=== PATIENT | male | born 1960 | race African-American/Black ===

== ENCOUNTER 2023-04-05 15:05 | Emergency (ER) | payer OTHER ==
[~2023-04-05] VITALS: Ht 172.7 cm; Wt 91.0 kg
[2023-04-05] MEDS ORDERED: SENN-187 PO (15:08)
[2023-04-05] MEDS ORDERED: AMLO-258 PO (15:08)
[2023-04-05] MEDS ORDERED: CARV12 PO (15:08)
[2023-04-05] MEDS ORDERED: LORA10TA7 PO (15:08)
[2023-04-05] MEDS ORDERED: ASPI-1450 PO (15:08)
[2023-04-05] MEDS ORDERED: LISI-894 PO (15:08)
[2023-04-05] MEDS ORDERED: TAMS-13 PO (15:08)
[2023-04-05] MEDS ORDERED: ATOR40TA28 PO (15:08)
[2023-04-05] MEDS ORDERED: TraMADol HCL 50 MG TABLET PO ONE (16:15)
[2023-04-05] MEDS ORDERED: TRAM-559 PO (17:25)
[2023-04-05 18:03] VITALS: BP 138/80
== END 2023-04-05 18:23 | disposition home or self-care (01) ==
LOC: EMS 15:05
DX: S80.01XA Contusion of right knee, initial encounter (principal); E78.00 Pure hypercholesterolemia, unspecified; I10 Essential (primary) hypertension; W18.09XA Striking against other object with subsequent fall, initial encounter; Y93.89 Activity, other specified; Y92.89 Other specified places as the place of occurrence of the external cause; Y99.8 Other external cause status
CPT/HCPCS: 29505; 99283

== ENCOUNTER 2023-10-29 13:33 | Emergency (ER) | payer MEDICARE, OTHER ==
[~2023-10-29] VITALS: Ht 172.7 cm; Wt 86.4 kg
[~2023-10-29 13:33] MED LIST: AMLO-258 PO; ASPI-1450 PO; ATOR40TA28 PO; CARV12 PO; LISI-894 PO; LORA10TA7 PO; SENN-376 PO; TAMS0.4C94 PO; TRAM-559 PO
[2023-10-29 19:16] VITALS: TEMP 98.1
[2023-10-29 21:25] VITALS: BP 126/78; PULSE 95; RESP 18
[2023-10-29] MEDS ORDERED: AMOX250C4 PO (21:48)
== END 2023-10-29 22:01 | disposition home or self-care (01) ==
LOC: EMS 15:13
DX: H66.91 Otitis media, unspecified, right ear (principal); H72.91 Unspecified perforation of tympanic membrane, right ear; E78.00 Pure hypercholesterolemia, unspecified; I10 Essential (primary) hypertension
CPT/HCPCS: 99283

== ENCOUNTER 2024-03-20 04:01 | Inpatient (IN) | payer MEDICARE, MEDICAID ==
[~2024-03-20] VITALS: Ht 175.3 cm; Wt 80.0 kg
[~2024-03-20 04:01] MED LIST changes: +AMOX250C4 PO; -TRAM-559 PO; +TRAM50TA5 PO
[2024-03-20] MEDS: GuaiFENesin/D-METHORPHAN [SUGAR-FREE] 200-20MG/10 ML SYRUP UDCUP PO ONE (06:21)
[2024-03-20] MEDS: ACETAMINOPHEN 500 MG TABLET PO ONE ×2 (06:21→13:03)
[2024-03-20 06:35] LABS: BASOPHILS % (AUTO) 0.2 % (0.0-2.0); EOSINOPHILS % (AUTO) 1.3 % (1.0-6.0); HEMATOCRIT 29.9 % (41-53); HEMOGLOBIN 9.8 g/dL (13.5-17.5); LYMPHOCYTES # (AUTO) 0.6 K/uL (1.0-4.8); LYMPHOCYTES % (AUTO) 5.8 % (22.0-44.0); MEAN CORPUSCULAR HGB CONC 32.8 G/dL (31.0-37.0); MEAN CORPUSCULAR VOLUME 79 fL (80-100); MONOCYTES # (AUTO) 1.1 K/uL (0.1-1.0); MONOCYTES % (AUTO) 9.8 % (2.0-9.0); NEUTROPHILS # (AUTO) 9.1 K/uL (1.8-7.7); NEUTROPHILS % (AUTO) 82.9 % (40.0-70.0); PLATELET COUNT (AUTO) 292 K/uL (150-450); RED BLOOD CELL COUNT(AUTO) 3.77 MIL/uL (4.50-5.90)
[2024-03-20 06:38] LABS: COVID AG,FIA SOURCE NASAL SWAB
[2024-03-20 06:45] LABS: ANION GAP 9 mmol/L (8-16); CALCIUM, TOTAL 9.1 mg/dL (8.8-10.5); CARBON DIOXIDE 30 mmol/L (22-29); CHLORIDE 100 mmol/L (98-107); CREATININE 1.28 mg/dL (0.60-1.30); GLOMERULAR FILTR. RATE CALC > 60 mL/min (>60); GLUCOSE,RANDOM 131 mg/dL (70-110); POTASSIUM 3.3 mmol/L (3.5-5.1); SODIUM SERUM 139 mmol/L (136-145); UREA NITROGEN, BLOOD 26 mg/dL (7-18)
[2024-03-20 06:50] LABS: ALANINE AMINOTRANSFERASE 14 U/L (12-78); ALBUMIN 2.6 g/dL (3.4-5.0); ALKALINE PHOSPHATASE 74 U/L (46-116); ASPARTATE AMINOTRANSFERASE 14 U/L (15-37); BILIRUBIN,TOTAL 0.5 mg/dL (0.1-1.0); TOTAL PROTEIN, SERUM 8.2 g/dL (6.4-8.2)
[2024-03-20 06:53] LABS: TROPONIN I-HIGH SENSITIVITY 6 ng/L (<76)
[2024-03-20] MEDS ORDERED: ATOR-2 PO (07:20)
[2024-03-20] MEDS ORDERED: SENN-376 PO (07:22)
[2024-03-20] MEDS ORDERED: LISI40TA9 PO (07:22)
[2024-03-20 07:29] LABS: B-TYPE NATRIURETIC PEPTIDE 14 pg/mL (0-100)
[2024-03-20] MEDS ORDERED: IOHEXOL 350 MG/ML 100 ML VIAL ONE (07:34)
[2024-03-20] MEDS ORDERED: SODIUM CHLORIDE 0.9% 100 ML ONE (07:34)
[2024-03-20 08:21] LABS: SARS-COV2 (COVID) ANTIGEN,FIA Negative (Negative)
[2024-03-20 08:26] LABS: INFLUENZA TYPE A NEGATIVE FOR TYPE A (NEGATIVE); INFLUENZA TYPE B NEGATIVE FOR TYPE B (NEGATIVE)
[2024-03-20] MEDS: SODIUM CHLORIDE 0.9% 1,000 ML IV ONE ×2 (09:25→14:20)
[2024-03-20] MEDS ORDERED: GADOTERATE MEGLUMINE 10 MMOL/20 ML VIAL IVP ONE (10:31)
[2024-03-20] MEDS: POTASSIUM CHLORIDE 20 MEQ ER TABLET PO ONE (10:42)
[2024-03-20] MEDS ORDERED: GLYCOPYRROLATE 0.2 MG/ML VIAL IM ONE (12:00)
[2024-03-20] MEDS ORDERED: LIDOCAINE/PF 2% 5 ML SYRINGE IVP ONE (12:00)
[2024-03-20] MEDS ORDERED: PROPOFOL 1% 20 ML VIAL IVP ONE (12:00)
[2024-03-20] MEDS: ASPIRIN 325 MG TABLET PO ONE (14:19)
[2024-03-20 17:53] VITALS: BP 145/72; PULSE 89; RESP 18; TEMP 97.9
[2024-03-20] MEDS ORDERED: HydrALAZINE HCL 20 MG/ML VIAL IVP PRN (18:30)
[2024-03-20] MEDS ORDERED: ZOLPIDEM TARTRATE 5 MG TABLET PO PRN (18:30)
[2024-03-20] MEDS ORDERED: ONDANSETRON HCL 4 MG/2 ML VIAL IVP PRN (18:30)
[2024-03-20] MEDS ORDERED: ACETAMINOPHEN 325 MG TABLET PO PRN (18:30)
[2024-03-20] MEDS ORDERED: SENNOSIDES 8.6 MG TABLET PO PRN (18:30)
[2024-03-20] MEDS ORDERED: LORATADINE 10 MG TABLET PO PRN (18:30)
[2024-03-20] MEDS: MORPHINE SULFATE 2 MG/ML SYRINGE IVP PRN (18:33)
[2024-03-20] MEDS: DOCUSATE SODIUM 100 MG CAPSULE PO SCH (21:00)
[2024-03-20 21:05] VITALS: BP 117/71; PULSE 89; RESP 19; TEMP 97.8
[2024-03-21] VITALS (8 sets, daily range): BP systolic 107–165; BP diastolic 72–100; PULSE 89–105; RESP 18–19; TEMP 97.3–98.5
[2024-03-21] MEDS: HEPARIN SODIUM,PORCINE 5,000 UNITS/ML VIAL SQ SCH
[2024-03-21 08:06] LABS: ANION GAP 9 mmol/L (8-16); CARBON DIOXIDE 26 mmol/L (22-29); CHLORIDE 102 mmol/L (98-107); CREATININE 0.96 mg/dL (0.60-1.30); GLOMERULAR FILTR. RATE CALC > 60 mL/min (>60); GLUCOSE,RANDOM 121 mg/dL (70-110); SODIUM SERUM 137 mmol/L (136-145); UREA NITROGEN, BLOOD 18 mg/dL (7-18)
[2024-03-21] MEDS: PANTOPRAZOLE SODIUM 40 MG/VIAL IVP SCH (08:08)
[2024-03-21] MEDS: ASPIRIN 81 MG CHEWABLE TABLET PO SCH (08:25)
[2024-03-21] MEDS: TAMSULOSIN HCL 0.4 MG CAPSULE PO SCH (08:26)
[2024-03-21] MEDS: ATORVASTATIN CALCIUM 40 MG TABLET PO SCH (08:26)
[2024-03-21] MEDS: DEXTROSE 5%-0.45% SODIUM CHL 1,000 ML IV SCH (15:45)
[2024-03-21] MEDS: ASPIRIN 300 MG RECTAL SUPPOSITORY PR SCH (15:45)
[2024-03-22] VITALS (7 sets, daily range): BP systolic 103–158; BP diastolic 69–91; PULSE 79–121; RESP 17–19; TEMP 97.5–98.3
[2024-03-22 07:06] LABS: BASOPHILS % (AUTO) 0.1 % (0.0-2.0); EOSINOPHILS % (AUTO) 0.2 % (1.0-6.0); HEMATOCRIT 31.9 % (41-53); HEMOGLOBIN 10.5 g/dL (13.5-17.5); LYMPHOCYTES # (AUTO) 0.6 K/uL (1.0-4.8); LYMPHOCYTES % (AUTO) 4.4 % (22.0-44.0); MEAN CORPUSCULAR HEMOGLOBIN 25.5 pg (26.0-34.0); MEAN CORPUSCULAR HGB CONC 32.8 G/dL (31.0-37.0); MEAN CORPUSCULAR VOLUME 78 fL (80-100); MONOCYTES % (AUTO) 7.4 % (2.0-9.0); NEUTROPHILS # (AUTO) 11.4 K/uL (1.8-7.7); PLATELET COUNT (AUTO) 330 K/uL (150-450); RED CELL DISTRIBUTION WIDTH 15.2 % (11.5-14.5); WHITE BLOOD COUNT (AUTO) 12.9 K/uL (4.5-11.0)
[2024-03-22 07:09] LABS: NEUTROPHILS % (AUTO) 87.9 % (40.0-70.0)
[2024-03-22 07:18] LABS: ALANINE AMINOTRANSFERASE 17 U/L (12-78); ALBUMIN 2.1 g/dL (3.4-5.0); ALKALINE PHOSPHATASE 78 U/L (46-116); ASPARTATE AMINOTRANSFERASE 13 U/L (15-37); BILIRUBIN,TOTAL 0.5 mg/dL (0.1-1.0); CALCIUM, TOTAL 8.9 mg/dL (8.8-10.5); CARBON DIOXIDE 28 mmol/L (22-29); CREATININE 0.96 mg/dL (0.60-1.30); GLOMERULAR FILTR. RATE CALC > 60 mL/min (>60); GLUCOSE,RANDOM 168 mg/dL (70-110); TOTAL PROTEIN, SERUM 8.6 g/dL (6.4-8.2); UREA NITROGEN, BLOOD 12 mg/dL (7-18)
[2024-03-22 07:52] LABS: ANION GAP 10 mmol/L (8-16); CHLORIDE 98 mmol/L (98-107); POTASSIUM 3.5 mmol/L (3.5-5.1); SODIUM SERUM 136 mmol/L (136-145)
[2024-03-22] MEDS: CLOPIDOGREL BISULFATE 75 MG TABLET PO SCH (17:00)
[2024-03-22] MEDS ORDERED: IOHEXOL 350 MG/ML 100 ML VIAL ONE (18:07)
[2024-03-22] MEDS ORDERED: SODIUM CHLORIDE 0.9% 100 ML ONE (18:07)
[2024-03-23] VITALS (12 sets, daily range): BP systolic 111–148; BP diastolic 68–88; PULSE 82–113; RESP 17–22; TEMP 98–98.6; O2SAT 94–99
[2024-03-23 08:09] LABS: BASOPHILS % (AUTO) 0.1 % (0.0-2.0); EOSINOPHILS % (AUTO) 0.1 % (1.0-6.0); HEMATOCRIT 32.6 % (41-53); HEMOGLOBIN 10.5 g/dL (13.5-17.5); LYMPHOCYTES # (AUTO) 0.8 K/uL (1.0-4.8); MEAN CORPUSCULAR HEMOGLOBIN 25.4 pg (26.0-34.0); MEAN CORPUSCULAR HGB CONC 32.3 G/dL (31.0-37.0); MEAN CORPUSCULAR VOLUME 79 fL (80-100); MONOCYTES # (AUTO) 1.3 K/uL (0.1-1.0); MONOCYTES % (AUTO) 8.8 % (2.0-9.0); NEUTROPHILS # (AUTO) 12.9 K/uL (1.8-7.7); PLATELET COUNT (AUTO) 303 K/uL (150-450); RED BLOOD CELL COUNT(AUTO) 4.13 MIL/uL (4.50-5.90); RED CELL DISTRIBUTION WIDTH 15.5 % (11.5-14.5)
[2024-03-23 08:18] LABS: ALANINE AMINOTRANSFERASE 22 U/L (12-78); ALBUMIN 2.2 g/dL (3.4-5.0); ALKALINE PHOSPHATASE 90 U/L (46-116); ANION GAP 9 mmol/L (8-16); ASPARTATE AMINOTRANSFERASE 23 U/L (15-37); BILIRUBIN,TOTAL 0.5 mg/dL (0.1-1.0); CALCIUM, TOTAL 8.9 mg/dL (8.8-10.5); CARBON DIOXIDE 29 mmol/L (22-29); CHLORIDE 97 mmol/L (98-107); CREATININE 1.05 mg/dL (0.60-1.30); GLOMERULAR FILTR. RATE CALC > 60 mL/min (>60); GLUCOSE,RANDOM 150 mg/dL (70-110); POTASSIUM 3.5 mmol/L (3.5-5.1); SODIUM SERUM 135 mmol/L (136-145); TOTAL PROTEIN, SERUM 8.2 g/dL (6.4-8.2); UREA NITROGEN, BLOOD 12 mg/dL (7-18)
[2024-03-23] MEDS: BISACODYL 10 MG RECTAL RECTAL SUPPOSITORY PR PRN (10:00)
[2024-03-23] MEDS: ALBUTEROL SULFATE 2.5 MG/0.5 ML NEB SOLUTION NEB PRN (10:28)
[2024-03-23] MEDS: IPRATROPIUM BROMIDE 0.5 MG/2.5 ML NEB SOLUTION NEB PRN (10:28)
[2024-03-23] MEDS: PIPERACILLIN/TAZO 3.375 GM/D5W 50 ML IV SCH (13:15)
[2024-03-24 00:06] VITALS: BP 125/78; PULSE 85; RESP 19; TEMP 98.9
[2024-03-24 04:00] VITALS: BP 104/58; PULSE 65; RESP 18
[2024-03-24 07:05] LABS: BASOPHILS % (AUTO) 0.1 % (0.0-2.0); EOSINOPHILS % (AUTO) 0.1 % (1.0-6.0); HEMOGLOBIN 9.9 g/dL (13.5-17.5); LYMPHOCYTES # (AUTO) 0.5 K/uL (1.0-4.8); LYMPHOCYTES % (AUTO) 2.9 % (22.0-44.0); MEAN CORPUSCULAR HEMOGLOBIN 25.4 pg (26.0-34.0); MEAN CORPUSCULAR HGB CONC 32.8 G/dL (31.0-37.0); MEAN CORPUSCULAR VOLUME 77 fL (80-100); MONOCYTES # (AUTO) 1.2 K/uL (0.1-1.0); MONOCYTES % (AUTO) 7.5 % (2.0-9.0); NEUTROPHILS # (AUTO) 14.2 K/uL (1.8-7.7); PLATELET COUNT (AUTO) 315 K/uL (150-450); RED BLOOD CELL COUNT(AUTO) 3.89 MIL/uL (4.50-5.90); RED CELL DISTRIBUTION WIDTH 15.4 % (11.5-14.5); WHITE BLOOD COUNT (AUTO) 15.9 K/uL (4.5-11.0)
[2024-03-24 07:07] LABS: NEUTROPHILS % (AUTO) 89.4 % (40.0-70.0)
[2024-03-24 07:15] VITALS: BP 134/76; PULSE 72; RESP 18; TEMP 98
[2024-03-24 07:23] LABS: ALANINE AMINOTRANSFERASE 27 U/L (12-78); ALBUMIN 1.9 g/dL (3.4-5.0); ALKALINE PHOSPHATASE 85 U/L (46-116); ANION GAP 7 mmol/L (8-16); ASPARTATE AMINOTRANSFERASE 21 U/L (15-37); BILIRUBIN,TOTAL 0.8 mg/dL (0.1-1.0); CALCIUM, TOTAL 8.7 mg/dL (8.8-10.5); CARBON DIOXIDE 30 mmol/L (22-29); CHLORIDE 96 mmol/L (98-107); CREATININE 1.09 mg/dL (0.60-1.30); GLOMERULAR FILTR. RATE CALC > 60 mL/min (>60); GLUCOSE,RANDOM 183 mg/dL (70-110); SODIUM SERUM 133 mmol/L (136-145); TOTAL PROTEIN, SERUM 8.1 g/dL (6.4-8.2); UREA NITROGEN, BLOOD 10 mg/dL (7-18)
[2024-03-24 07:44] LABS: POTASSIUM 2.9 mmol/L (3.5-5.1)
[2024-03-24] MEDS: HYDROCODONE/ACETAMINOPHEN 5-325 MG TABLET PO PRN (08:21)
[2024-03-24 11:44] VITALS: BP 127/74; PULSE 78; RESP 18; TEMP 98.1
[2024-03-24 15:08] VITALS: BP 131/72; PULSE 84; RESP 18; TEMP 98
[2024-03-24] MEDS: VANCOMYCIN 1.5 GM/WATER(PEG) 300 ML IV ONE (18:32)
[2024-03-24 19:46] VITALS: BP 135/77; PULSE 83; RESP 19; TEMP 98.7
[2024-03-24] MEDS: POTASSIUM CHL 10 MEQ/WATER 50 ML IV PRN (19:53)
[2024-03-25 00:08] VITALS: BP 128/85; PULSE 93; RESP 19; TEMP 98.7
[2024-03-25 04:56] VITALS: BP 129/89; PULSE 89; RESP 19; TEMP 98
[2024-03-25] MEDS ORDERED: SODIUM CL IRRIG SOLN BOTTLE 250 ML IRRIG ONE (05:08)
[2024-03-25 07:21] LABS: HEMATOCRIT 28.4 % (41-53); HEMOGLOBIN 9.2 g/dL (13.5-17.5); MEAN CORPUSCULAR HEMOGLOBIN 25.2 pg (26.0-34.0); MEAN CORPUSCULAR HGB CONC 32.3 G/dL (31.0-37.0); MEAN CORPUSCULAR VOLUME 78 fL (80-100); PLATELET COUNT (AUTO) 267 K/uL (150-450); RED BLOOD CELL COUNT(AUTO) 3.64 MIL/uL (4.50-5.90); RED CELL DISTRIBUTION WIDTH 14.9 % (11.5-14.5)
[2024-03-25 07:24] LABS: ALANINE AMINOTRANSFERASE 38 U/L (12-78); ALBUMIN 1.6 g/dL (3.4-5.0); ALKALINE PHOSPHATASE 108 U/L (46-116); ANION GAP 10 mmol/L (8-16); ASPARTATE AMINOTRANSFERASE 32 U/L (15-37); CALCIUM, TOTAL 8.6 mg/dL (8.8-10.5); CARBON DIOXIDE 28 mmol/L (22-29); CHLORIDE 96 mmol/L (98-107); CREATININE 1.13 mg/dL (0.60-1.30); GLOMERULAR FILTR. RATE CALC > 60 mL/min (>60); GLUCOSE,RANDOM 178 mg/dL (70-110); POTASSIUM 3.1 mmol/L (3.5-5.1); SODIUM SERUM 134 mmol/L (136-145); TOTAL PROTEIN, SERUM 7.8 g/dL (6.4-8.2); UREA NITROGEN, BLOOD 13 mg/dL (7-18)
[2024-03-25 08:14] VITALS: BP 131/79; PULSE 87; RESP 16; TEMP 98.2
[2024-03-25] MEDS: VANCOMYCIN 1GM/WATER(PEG/NADA) 200 ML IV SCH (08:33)
[2024-03-25] MEDS: POTASSIUM CHLORIDE 20 MEQ ER TABLET PO PRN (08:34)
[2024-03-25 10:05] LABS: BAND NEUTROPHILS % (MANUAL) 0 % (0-5); LYMPHOCYTES % (MANUAL) 5 % (22-44); MONOCYTES % (MANUAL) 5 % (2-9); SEGMENTED NEUTROPHILS % 90 % (40-70); TOTAL CELLS COUNTED 100
[2024-03-25] MEDS: *CLINICAL-PERIPHERAL PARENTERAL NUTRITION DOSING CLINICAL ONE (10:14)
[2024-03-25 11:45] VITALS: BP 151/90; PULSE 87; RESP 18; TEMP 98.9
[2024-03-25 12:02] LABS: PHOSPHORUS 2.4 mg/dL (2.5-4.9)
[2024-03-25 14:59] VITALS: BP 143/93; PULSE 103; RESP 18; TEMP 98.5
[2024-03-25 18:30] LABS: APPEARANCE,URINE HAZY (CLEAR); BILIRUBIN,URINE NEGATIVE (NEGATIVE); COLOR,URINE YELLOW (YELLOW); GLUCOSE, URINE (UA) NEGATIVE (NEGATIVE); KETONES,URINE NEGATIVE (NEGATIVE); LEUKOCYTE ESTERASE ,URINE NEGATIVE (NEGATIVE); NITRATE,URINE NEGATIVE (NEGATIVE); OCCULT BLOOD,URINE MODERATE (NEGATIVE); PH,URINE 5.5 (5.0-8.0); PROTEIN,URINE 30-70 mg/dL (NEGATIVE); SPECIFIC GRAVITIY, URINE 1.025 (1.003-1.030); UROBILINOGEN,URINE <=1.0 mg/dL (<=1.0)
[2024-03-25 19:06] LABS: AMORPHOUS SEDIMENT,UR Moderate /LPF (None Seen); BACTERIA,URINE None Seen /HPF (None Seen); SQUAMOUS EPITHELIAL CELL,UR Few /LPF (None Seen); URIC ACID CRYSTALS,URINE Few /LPF (None Seen); WBC,URINE None Seen /HPF (0-5)
[2024-03-25 20:22] VITALS: BP 137/87; PULSE 99; RESP 18; TEMP 98.6
[2024-03-26] MEDS: POTASSIUM CHLORIDE IV SCH ×2 (02:35→22:45)
[2024-03-26] MEDS: [UNRECOGNIZED DRUG - OTHER] IV SCH (02:35)
[2024-03-26] MEDS: PPN IV SCH ×2 (02:35→22:45)
[2024-03-26] MEDS: SODIUM CHLORIDE IV SCH ×2 (02:35→22:45)
[2024-03-26 04:03] VITALS: BP 136/60; PULSE 95; RESP 18; TEMP 98
[2024-03-26 08:04] LABS: BASOPHILS % (AUTO) 0.1 % (0.0-2.0); EOSINOPHILS % (AUTO) 0.4 % (1.0-6.0); HEMATOCRIT 29.3 % (41-53); HEMOGLOBIN 9.5 g/dL (13.5-17.5); LYMPHOCYTES # (AUTO) 0.6 K/uL (1.0-4.8); LYMPHOCYTES % (AUTO) 4.9 % (22.0-44.0); MEAN CORPUSCULAR HEMOGLOBIN 25.2 pg (26.0-34.0); MEAN CORPUSCULAR HGB CONC 32.5 G/dL (31.0-37.0); MEAN CORPUSCULAR VOLUME 78 fL (80-100); MONOCYTES % (AUTO) 8.4 % (2.0-9.0); NEUTROPHILS # (AUTO) 10.7 K/uL (1.8-7.7); PLATELET COUNT (AUTO) 270 K/uL (150-450); RED BLOOD CELL COUNT(AUTO) 3.78 MIL/uL (4.50-5.90); RED CELL DISTRIBUTION WIDTH 15.4 % (11.5-14.5); WHITE BLOOD COUNT (AUTO) 12.4 K/uL (4.5-11.0)
[2024-03-26 08:21] LABS: NEUTROPHILS % (AUTO) 86.2 % (40.0-70.0)
[2024-03-26] MEDS ORDERED: SODIUM CHLORIDE 0.9% 1,000 ML ONE (08:21)
[2024-03-26 08:51] LABS: INR 1.3 (0.9-1.1); PROTHROMBIN TIME 13.8 SEC (9.4-11.6)
[2024-03-26 08:57] LABS: PHOSPHORUS 2.8 mg/dL (2.5-4.9); VANCOMYCIN,RANDOM 26.4 mcg/mL (25.0-50.0)
[2024-03-26 09:17] VITALS: BP 136/80; PULSE 86; RESP 18; TEMP 98.2
[2024-03-26 09:58] LABS: ALANINE AMINOTRANSFERASE 42 U/L (12-78); ALBUMIN 1.8 g/dL (3.4-5.0); ALKALINE PHOSPHATASE 133 U/L (46-116); ANION GAP 11 mmol/L (8-16); ASPARTATE AMINOTRANSFERASE 37 U/L (15-37); CALCIUM, TOTAL 8.8 mg/dL (8.8-10.5); CARBON DIOXIDE 29 mmol/L (22-29); CHLORIDE 96 mmol/L (98-107); CREATININE 1.07 mg/dL (0.60-1.30); GLOMERULAR FILTR. RATE CALC > 60 mL/min (>60); GLUCOSE,RANDOM 161 mg/dL (70-110); POTASSIUM 3.1 mmol/L (3.5-5.1); SODIUM SERUM 136 mmol/L (136-145); UREA NITROGEN, BLOOD 16 mg/dL (7-18)
[2024-03-26] MEDS ORDERED: DEXTROSE 5%-0.45% SODIUM CHL 1,000 ML IV SCH ×2 (10:30→22:00)
[2024-03-26] MEDS: SODIUM CHLORIDE 0.9% 1,000 ML IV ONE (14:00)
[2024-03-26] MEDS: DEXTROSE 5%-0.45% SODIUM CHL 1,000 ML IV SCH (17:14)
[2024-03-26 21:16] VITALS: BP 130/83; PULSE 81; RESP 18; TEMP 97.7
[2024-03-26] MEDS ORDERED: [UNRECOGNIZED DRUG - OTHER] IV SCH (22:00)
[2024-03-26] MEDS ORDERED: SODIUM CHLORIDE IV SCH (22:00)
[2024-03-26] MEDS ORDERED: POTASSIUM CHLORIDE IV SCH (22:00)
[2024-03-26] MEDS ORDERED: PPN IV SCH (22:00)
[2024-03-26] MEDS: [UNRECOGNIZED DRUG - OTHER] IV SCH (22:45)
[2024-03-27 04:14] VITALS: BP 131/78; PULSE 84; RESP 18; TEMP 98.2
[2024-03-27 07:23] LABS: BASOPHILS % (AUTO) 0.2 % (0.0-2.0); EOSINOPHILS % (AUTO) 0.6 % (1.0-6.0); HEMATOCRIT 26.7 % (41-53); HEMOGLOBIN 8.9 g/dL (13.5-17.5); LYMPHOCYTES # (AUTO) 0.6 K/uL (1.0-4.8); LYMPHOCYTES % (AUTO) 5.5 % (22.0-44.0); MEAN CORPUSCULAR HEMOGLOBIN 25.6 pg (26.0-34.0); MEAN CORPUSCULAR HGB CONC 33.2 G/dL (31.0-37.0); MEAN CORPUSCULAR VOLUME 77 fL (80-100); MONOCYTES % (AUTO) 9.3 % (2.0-9.0); NEUTROPHILS # (AUTO) 9.2 K/uL (1.8-7.7); NEUTROPHILS % (AUTO) 84.4 % (40.0-70.0); PLATELET COUNT (AUTO) 270 K/uL (150-450); RED BLOOD CELL COUNT(AUTO) 3.46 MIL/uL (4.50-5.90); RED CELL DISTRIBUTION WIDTH 15.3 % (11.5-14.5); WHITE BLOOD COUNT (AUTO) 10.9 K/uL (4.5-11.0)
[2024-03-27 07:27] LABS: ALANINE AMINOTRANSFERASE 36 U/L (12-78); ALBUMIN 1.6 g/dL (3.4-5.0); ALKALINE PHOSPHATASE 123 U/L (46-116); ANION GAP 11 mmol/L (8-16); ASPARTATE AMINOTRANSFERASE 23 U/L (15-37); BILIRUBIN,TOTAL 0.9 mg/dL (0.1-1.0); CALCIUM, TOTAL 8.3 mg/dL (8.8-10.5); CARBON DIOXIDE 29 mmol/L (22-29); CHLORIDE 98 mmol/L (98-107); CREATININE 1.08 mg/dL (0.60-1.30); GLOMERULAR FILTR. RATE CALC > 60 mL/min (>60); GLUCOSE,RANDOM 159 mg/dL (70-110); PHOSPHORUS 2.8 mg/dL (2.5-4.9); SODIUM SERUM 138 mmol/L (136-145); TOTAL PROTEIN, SERUM 7.8 g/dL (6.4-8.2); UREA NITROGEN, BLOOD 16 mg/dL (7-18)
[2024-03-27 07:53] LABS: POTASSIUM 2.8 mmol/L (3.5-5.1)
[2024-03-27 07:58] LABS: VANCOMYCIN,RANDOM 24.8 mcg/mL (25.0-50.0)
[2024-03-27] MEDS: POTASSIUM CHL 10 MEQ/WATER 50 ML IV PRN (08:08)
[2024-03-27 08:25] VITALS: BP 116/75; PULSE 77; RESP 18; TEMP 97.8
[2024-03-27 08:30] LABS: RBC MORPHOLOGY COMMENT ABNORMAL RBC MORPH
[2024-03-27 12:27] VITALS: BP 149/77; PULSE 84; RESP 18; TEMP 98.5
[2024-03-27] MEDS ORDERED: SODIUM CHLORIDE 0.9% 1,000 ML ONE (12:39)
[2024-03-27] MEDS ORDERED: EPINEPHrine 1:10,000 [1 MG/10 ML] SYRINGE ONE (12:40)
[2024-03-27] MEDS ORDERED: CeFAZolin SODIUM 1 GM VIAL ONE (12:57)
[2024-03-27 15:02] VITALS: BP 129/89; PULSE 79; RESP 18; TEMP 98.3
[2024-03-27] MEDS: VANCOMYCIN 750 MG/WATER(PEG) 150 ML IV SCH (15:12)
[2024-03-27 16:07] VITALS: BP 131/69; PULSE 70; RESP 18; TEMP 98.1
[2024-03-27 20:10] VITALS: BP 142/99; PULSE 86; RESP 18; TEMP 97.7
[2024-03-27] MEDS ORDERED: SODIUM CHLORIDE 0.9% 500 ML IV ONE (20:51)
[2024-03-27] MEDS: POTASSIUM CHLORIDE 20 MEQ ER TABLET PO PRN (21:18)
[2024-03-28 04:32] VITALS: BP 146/92; PULSE 83; RESP 18; TEMP 98.2
[2024-03-28 07:37] LABS: BASOPHILS % (AUTO) 0.4 % (0.0-2.0); EOSINOPHILS % (AUTO) 0.6 % (1.0-6.0); HEMATOCRIT 29.7 % (41-53); HEMOGLOBIN 9.6 g/dL (13.5-17.5); LYMPHOCYTES # (AUTO) 0.5 K/uL (1.0-4.8); LYMPHOCYTES % (AUTO) 4.8 % (22.0-44.0); MEAN CORPUSCULAR HEMOGLOBIN 25.4 pg (26.0-34.0); MEAN CORPUSCULAR HGB CONC 32.5 G/dL (31.0-37.0); MEAN CORPUSCULAR VOLUME 78 fL (80-100); MONOCYTES % (AUTO) 8.4 % (2.0-9.0); NEUTROPHILS # (AUTO) 9.7 K/uL (1.8-7.7); PLATELET COUNT (AUTO) 254 K/uL (150-450); RED CELL DISTRIBUTION WIDTH 15.2 % (11.5-14.5); WHITE BLOOD COUNT (AUTO) 11.4 K/uL (4.5-11.0)
[2024-03-28 07:46] LABS: NEUTROPHILS % (AUTO) 85.8 % (40.0-70.0)
[2024-03-28 07:50] LABS: ALANINE AMINOTRANSFERASE 40 U/L (12-78); ALBUMIN 1.7 g/dL (3.4-5.0); ALKALINE PHOSPHATASE 137 U/L (46-116); ANION GAP 8 mmol/L (8-16); ASPARTATE AMINOTRANSFERASE 31 U/L (15-37); BILIRUBIN,TOTAL 0.7 mg/dL (0.1-1.0); CALCIUM, TOTAL 8.5 mg/dL (8.8-10.5); CARBON DIOXIDE 29 mmol/L (22-29); CHLORIDE 101 mmol/L (98-107); CREATININE 0.97 mg/dL (0.60-1.30); GLOMERULAR FILTR. RATE CALC > 60 mL/min (>60); GLUCOSE,RANDOM 130 mg/dL (70-110); POTASSIUM 3.5 mmol/L (3.5-5.1); SODIUM SERUM 138 mmol/L (136-145); TOTAL PROTEIN, SERUM 8.2 g/dL (6.4-8.2); UREA NITROGEN, BLOOD 15 mg/dL (7-18)
[2024-03-28 08:15] VITALS: BP 145/82; PULSE 82; RESP 18; TEMP 97.4
[2024-03-28 08:50] LABS: PHOSPHORUS 2.7 mg/dL (2.5-4.9)
[2024-03-28] MEDS: MAGNESIUM HYDROXIDE SUSPENSION 30 ML UDCUP PO PRN (14:55)
[2024-03-28 16:27] VITALS: BP 139/70; PULSE 75; RESP 20; TEMP 97.8
[2024-03-28 20:15] VITALS: BP 131/75; PULSE 81; RESP 20; TEMP 97.5
[2024-03-29 04:23] VITALS: BP 122/85; PULSE 88; RESP 18; TEMP 98.2
[2024-03-29 08:17] LABS: ANION GAP 7 mmol/L (8-16); CALCIUM, TOTAL 8.5 mg/dL (8.8-10.5); CARBON DIOXIDE 30 mmol/L (22-29); CHLORIDE 98 mmol/L (98-107); CREATININE 1.08 mg/dL (0.60-1.30); GLOMERULAR FILTR. RATE CALC > 60 mL/min (>60); GLUCOSE,RANDOM 154 mg/dL (70-110); PHOSPHORUS 2.2 mg/dL (2.5-4.9); POTASSIUM 3.7 mmol/L (3.5-5.1); SODIUM SERUM 135 mmol/L (136-145); UREA NITROGEN, BLOOD 17 mg/dL (7-18)
[2024-03-29 08:49] VITALS: BP 128/83; PULSE 82; RESP 18; TEMP 97.7
[2024-03-29 16:47] VITALS: BP 127/89; PULSE 78; RESP 18; TEMP 98.7
[2024-03-29 21:32] VITALS: BP 109/69; PULSE 80; RESP 18; TEMP 97.9
[2024-03-30 05:04] VITALS: BP 134/77; PULSE 75; RESP 18; TEMP 97.4
[2024-03-30 07:54] VITALS: BP 105/76; PULSE 83; RESP 20; TEMP 98.4
[2024-03-30 07:59] LABS: ANION GAP 8 mmol/L (8-16); CALCIUM, TOTAL 8.4 mg/dL (8.8-10.5); CARBON DIOXIDE 30 mmol/L (22-29); CHLORIDE 97 mmol/L (98-107); CREATININE 1.02 mg/dL (0.60-1.30); GLOMERULAR FILTR. RATE CALC > 60 mL/min (>60); GLUCOSE,RANDOM 142 mg/dL (70-110); PHOSPHORUS 2.3 mg/dL (2.5-4.9); POTASSIUM 3.6 mmol/L (3.5-5.1); SODIUM SERUM 135 mmol/L (136-145); UREA NITROGEN, BLOOD 17 mg/dL (7-18); VANCOMYCIN,RANDOM 21.9 mcg/mL (25.0-50.0)
[2024-03-30] MEDS: VANCOMYCIN 1.25 GM/WATER(PEG) 250 ML IV SCH (09:13)
[2024-03-30 13:09] LABS: BASOPHILS % (AUTO) 0.2 % (0.0-2.0); EOSINOPHILS % (AUTO) 1.2 % (1.0-6.0); HEMATOCRIT 28.2 % (41-53); LYMPHOCYTES # (AUTO) 0.9 K/uL (1.0-4.8); LYMPHOCYTES % (AUTO) 7.7 % (22.0-44.0); MEAN CORPUSCULAR HEMOGLOBIN 24.7 pg (26.0-34.0); MEAN CORPUSCULAR HGB CONC 31.7 G/dL (31.0-37.0); MEAN CORPUSCULAR VOLUME 78 fL (80-100); MONOCYTES # (AUTO) 0.8 K/uL (0.1-1.0); MONOCYTES % (AUTO) 7.3 % (2.0-9.0); NEUTROPHILS # (AUTO) 9.4 K/uL (1.8-7.7); NEUTROPHILS % (AUTO) 83.6 % (40.0-70.0); PLATELET COUNT (AUTO) 277 K/uL (150-450); RED BLOOD CELL COUNT(AUTO) 3.63 MIL/uL (4.50-5.90); RED CELL DISTRIBUTION WIDTH 15.5 % (11.5-14.5); WHITE BLOOD COUNT (AUTO) 11.2 K/uL (4.5-11.0)
[2024-03-30 13:28] LABS: ALANINE AMINOTRANSFERASE 35 U/L (12-78); ALBUMIN 1.8 g/dL (3.4-5.0); ALKALINE PHOSPHATASE 106 U/L (46-116); ASPARTATE AMINOTRANSFERASE 23 U/L (15-37); BILIRUBIN,TOTAL 0.4 mg/dL (0.1-1.0)
[2024-03-30 13:38] LABS: RBC MORPHOLOGY COMMENT ABNORMAL RBC MORPH
[2024-03-30 16:28] VITALS: BP 144/72; PULSE 94; RESP 18; TEMP 98.7
== END 2024-03-30 18:40 | DRG 64 ==
LOC: EMS 04:02 → 5S 16:33 → 6S 03-25 13:46
PROVIDERS: ADMIT Internal Medicine; ATTEND Internal Medicine
PROC: 05H933Z Insertion of Infusion Device into Right Brachial Vein, Percutaneous Approach (ICD-10-PCS; 2024-03-22)
PROC: 0DH63UZ Insertion of Feeding Device into Stomach, Percutaneous Approach (ICD-10-PCS; principal; 2024-03-27 13:30)
DX: I63.512 Cerebral infarction due to unspecified occlusion or stenosis of left middle cerebral artery (principal); E43 Unspecified severe protein-calorie malnutrition; I69.354 Hemiplegia and hemiparesis following cerebral infarction affecting left non-dominant side; K22.2 Esophageal obstruction; I10 Essential (primary) hypertension; E78.00 Pure hypercholesterolemia, unspecified; Z20.822 Contact with and (suspected) exposure to COVID-19; E87.6 Hypokalemia; R62.7 Adult failure to thrive; C11.9 Malignant neoplasm of nasopharynx, unspecified; R13.10 Dysphagia, unspecified; Z79.82 Long term (current) use of aspirin; Z79.899 Other long term (current) drug therapy; Z68.26 Body mass index [BMI] 26.0-26.9, adult; Z92.21 Personal history of antineoplastic chemotherapy
CPT/HCPCS: 36245; 36569; 70450; 70486; 70543; 70553; 71045; 74018; 74177; 74230; 76937; 80048; 80053; 80202; 81001; 83735; 83880; 84100; 84132; 84484; 85025; 85610; 87040; 87804; 92526; 92610; 92611; 93005; 93306; 93880; 94640; 97112; 97162; 97163; 97167; 97530; 97535; 99285; C9113; J0171; J0610; J0690; J1644; J2270; J2543; J2704; J3475; J3480; J3490; J7030; J7040; J7050; J7070; J7131; Q9967; 36415-L1; 36415-TC; J7613